=== PATIENT | female | born 1970 ===

== ENCOUNTER 2017-12-31 01:33 | Inpatient (IN) ==
[2017-12-31] MEDS ORDERED: ONDANSETRON 4 MG/2 ML VIAL IV PRN ×2 (02:18→12:48)
[2017-12-31] MEDS ORDERED: HYDROmorphone 2 MG/1 ML VIAL IV STA (02:22)
[2017-12-31] MEDS ORDERED: SODIUM CHLORIDE 0.9% 1,000 ML IV STA (02:22)
[2017-12-31] MEDS: LACTATED RINGERS 1,000 ML IV SCH ×3 (04:42→17:57)
[2017-12-31] MEDS: PIPERACILLIN/TAZOBACTAM 3,375 MG in SODIUM CHLORIDE 0.9% 100 ML IV SCH ×3 (04:42→21:40)
[2017-12-31 06:45] LABS: Basophils % 0.4 % (0.0-0.8); Eosinophils # 0.1 10*3/uL (0.0-0.87); Eosinophils % 1.4 % (0.00-10.9); Hematocrit 35.1 VOL% (35.7-47.0); Hemoglobin 11.5 GM/DL (12.0-16.0); Immature Granulocytes % 0.1 %; Immature Granulocytes Absolute 0.01 #; Lymphocytes % 41.9 % (21.3-54.2); Mean Corpuscular HGB Conc 32.8 GM/DL (32-36); Mean Corpuscular Hemoglobin 29 PG (27-34); Mean Corpuscular Volume 88.2 FL (87-102); Mean Platelet Volume 10.6 FL (9.6-12.0); Monocytes # 0.4 10*3/uL (0.11-0.8); Monocytes % 5.9 % (1.7-12.7); Neutrophils # 3.6 10*3/uL (1.4-7.4); Neutrophils % 50.3 % (38.7-73.9); Platelet Count 303 T/CUMM (130-400); Red Blood Count 3.98 MC/CUMM (3.8-5.5); Red Cell Distribution Width 13.5 % (9.3-17.3); White Blood Count 7.1 T/CUMM (4-12)
[2017-12-31] MEDS: PANTOPRAZOLE 40 MG TABLET PO SCH (08:05)
[2017-12-31] MEDS ORDERED: BUPIVACAINE MPF 0.25% /EPI 30 ML VIAL ONE (10:44)
[2017-12-31] MEDS ORDERED: TISSUE ADHESIVE 1 EACH APPLICATOR TOP ONE (10:44)
[2017-12-31] MEDS ORDERED: LIDOCAINE 1%/EPI INJ 20 ML VIAL ONE (10:44)
[2017-12-31] MEDS ORDERED: SUCCINYLCHOLINE 200 MG/10 ML VIAL ONE (12:45)
[2017-12-31] MEDS ORDERED: SEVOFLURANE 1 UNIT/15 MINUTE INH ONE (12:45)
[2017-12-31] MEDS ORDERED: NEOSTIGMINE 10 MG/10 ML VIAL ONE (12:45)
[2017-12-31] MEDS ORDERED: PHENYLEPHRINE 1 MG/10 ML SYRINGE IV ONE (12:45)
[2017-12-31] MEDS ORDERED: GLYCOPYRROLATE 0.4 MG/2 ML VIAL ONE (12:45)
[2017-12-31] MEDS ORDERED: ROCURONIUM 100 MG/10 ML VIAL IV ONE (12:45)
[2017-12-31] MEDS ORDERED: ePHEDrine 50 MG/ML AMP ONE (12:45)
[2017-12-31] MEDS ORDERED: LACTATED RINGERS 1,000 ML IV ONE (12:45)
[2017-12-31] MEDS ORDERED: DEXAMETHASONE 10 MG/1 ML VIAL ONE (12:45)
[2017-12-31] MEDS ORDERED: PROPOFOL 200 MG/20 ML VIAL IV ONE (12:45)
[2017-12-31] MEDS ORDERED: ONDANSETRON 4 MG/2 ML VIAL ONE (12:45)
[2017-12-31] MEDS ORDERED: HYDROmorphone 2 MG/1 ML VIAL IV PRN (12:48)
[2017-12-31] MEDS ORDERED: fentaNYL 100 MCG/2 ML VIAL ONE ×2 (12:48→12:49)
[2017-12-31] MEDS ORDERED: LACTATED RINGERS 1,000 ML IV SCH (13:00)
[2017-12-31] MEDS: HYDROmorphone 2 MG/1 ML VIAL IV PRN (17:24)
[2018-01-01] MEDS: PIPERACILLIN/TAZOBACTAM 3,375 MG in SODIUM CHLORIDE 0.9% 100 ML IV SCH ×2 (06:03→15:46)
[2018-01-01] MEDS: LACTATED RINGERS 1,000 ML IV SCH ×2 (06:03→12:59)
[2018-01-01] MEDS: PANTOPRAZOLE 40 MG TABLET PO SCH (09:08)
[2018-01-01] MEDS: HYDROmorphone 2 MG/1 ML VIAL IV PRN (09:16)
[2018-01-01 12:28] VITALS: BP 126/82
== END 2018-01-01 15:40 | disposition home or self-care (01) | DRG 343 ==
LOC: EDUNIT# → EDBD → N.ED 01:33 → N.EDINP 02:18 → N.3E 03:04
PROVIDERS: ADMIT Surgery; ATTEND Surgery